=== PATIENT | male | born 1955 ===

== ENCOUNTER 2020-04-01 16:04 | Emergency (ER) ==
[2020-04-01 16:24] VITALS: BP 149/77
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
== END 2020-04-01 18:53 | disposition left against medical advice (07) ==
LOC: ED 16:04